=== PATIENT | female | born 1980 ===

== ENCOUNTER 2018-08-04 09:15 | Outpatient (CLI) | payer OTHER | END 2018-08-04 09:16 | disposition home or self-care (01) | LOC: C.MAMMO 09:15 | DX: Z12.31 Encounter for screening mammogram for malignant neoplasm of breast (principal) ==

== ENCOUNTER 2018-08-25 09:06 | Outpatient (CLI) | payer OTHER | END 2018-08-25 09:07 | disposition home or self-care (01) | LOC: C.MAMMO 09:06 ==